=== PATIENT | male | born 1950 | race Caucasian/White ===

== ENCOUNTER → 2017-08-01 | Outpatient (CLI) | payer OTHER, BC ==
[~2017-08-01] VITALS: Ht 175.3 cm; Wt 95.3 kg
[~2017-08-01] MED LIST: DILANTIN100 MG PO; NABUMETONE 750750 M1 PO
--- NOTE | ~2017-08-01 | HPC ---
[facility] [address] [place] [address] PAIN MANAGEMENT CONSULTATION Name: MICHAEL TRAMMELL Room #: REG VIOLA Mitchell#: [id number] Admission: 08/01/17 Attend Phys: Raphael Merchant DO Discharge: Date of : 51 Report #: [id number] THIS REPORT FOR: //name// CC: José Merchant The patient is a 67-year-old gentleman seen in consultation at the request of Dr. Vu for assistance with management of pain, right neck, posterior occiput and shoulder. The patient suffered a traumatic brain injury, fell backward striking his head, posterior occiput, but developing a front intracranial bleed, treated in June 2016. This resolved and in October 2016, started to develop some pain in the right side of his neck. Pain has been persistent for the past 7-8 months. He had cervical epidural injection at C7-T1 for the headache and pain syndrome with no efficacy. Has ongoing physical therapy. Muscle relaxant (tizanidine?) with some efficacy. Deep massage, chiropractic manipulation and p.r.n. nonsteroidal anti-inflammatory medications have all afforded some efficacy, but nothing long-term. He describes continuous sharp stabbing pain, right side of his neck, rates it 8-10 on a VAS, exacerbated with cervical rotation and side bending. Again, pain is primarily in the right neck, posterior occiput and somewhat over the right shoulder. Denies any specific radicular symptoms down to the arm or hand. No myelopathic symptoms are noted. Notes he does have occasional headaches, again subsequent to the TBI, they have been a little more intense in the frontal area, but unrelated to this right posterior occipital, neck and shoulder pain. REVIEW OF SYSTEMS: Complete review of systems attached to chart and gone over with the patient. He is , seen in the company of who is supportive. Does not smoke or drink alcohol to excess. History of seizure disorder, well treated with Dilantin 100 mg at bedtime, states his last seizure was in 1988. He reports really no other medical issues other than the aforementioned traumatic brain injury and intracranial bleed (sub/epidural hematoma? ). The patient has had total knee arthroplasty in 2016, right rotator cuff repairs in 2002 and again in 2013, left rotator cuff repair in 2004. 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 Pain impact score is 26/70. PHYSICAL EXAMINATION: GENERAL: Reveals a 5 feet 9 inches, 210 pounds gentleman. VITAL SIGNS: Stable as noted on the EMR. NEUROLOGIC: Cranial nerves 2-12 appear grossly intact. HEENT: Pupils equal and reactive to light and accommodation. Extraocular muscles are intact. There is nominal nystagmus with lateral gaze deviation. MUSCULOSKELETAL: Cervical range of motion exhibits pain with extension and a [address] [address] PAIN MANAGEMENT CONSULTATION Name: MICHAEL TRAMMELL Room #: REG [facility] [id number] Admission: 08/01/17 Attend Phys: Raphael Merchant DO Discharge: Date of : 51 Report #: [id number] little bit with side bending on the right side. Very tender over the superior cervical facets. Upper extremity strength is symmetric at 4-5 to all muscle groups tested. Hand grasp is symmetric. Tinel's is negative. Deep reflexes are preserved. HEART: Regular and rhythmical with a subtle grade 1-2/6 systolic ejection murmur. LUNGS: Clear to auscultation. ABDOMEN: Benign. EXTREMITIES: Lower extremity strength is preserved. Gait is tandem. DIAGNOSTIC STUDIES: Reviewed including an MRI of the cervical spine from 06/03/2017. While it does note right greater than left facet degenerative changes at C6-C7 and C7-T1 with right-sided HNP. There are no corresponding chronic cervical radicular symptoms. There are also noted; however, C2-C3, C3-C4, C4-C5 of degenerative changes involving the uncovertebral and facets bilaterally. ASSESSMENT: Symptomatic cervical spondylosis by clinical exam and history, history of traumatic brain injury, longstanding seizure disorder. RECOMMENDATIONS: 1. Discussed with the patient today about therapeutic option. It appears the symptoms are coming primarily from right cervical facet radiated pain. We have elected to proceed with cervical facet joint injection under fluoroscopy in the right C2-C3, C3-C4 and C4-C5. We will use a short course of nabumetone 750 b.i.d. The patient is cautioned against using any other [id number] anti-inflammatories. 2. Follow up in 3 weeks for reevaluation. If he gets short-term relief, we will consider medial branch dorsal rami diagnostic block and RFL of same. Thank you for allowing me to participate in the patient's care. I will keep you abreast of his progress. PROCEDURE: Right cervical facet joint injections x 3 under fluoroscopy. Fluoroscopy time was under 20 seconds. PROCEDURE NOTE: After written informed consent was obtained, the patient was taken to fluoroscopy suite, placed in prone position. After sterile prep and drape, skin wheal was raised, 3 skin wheals with Xylocaine were created. The 22-gauge stylet needles were placed to contact the posterior aspect of the right C2-C3, right C3-C4, and right C4-C5 facets in the midpoint of the lateral mass. AP and lateral projections showed good needle placement at the posterior aspect of the joint. Then, 0.5 mL of Omnipaque was injected, which showed no vascular uptake and good spread of dye into the joint. This was followed with 2.33 mg of Decadron plus 1 mL of 0.5% preservative-free bupivacaine at all 3 sites. All 3 needles removed. The area was cleansed, Band-Aids applied. [facility] [address] [place] [address] PAIN MANAGEMENT CONSULTATION Name: MICHAEL TRAMMELL Room #: REG [facility].#: [id number] Admission: 08/01/17 Attend Phys: Raphael Merchant DO Discharge: Date of : 51 Report #: [id number] patient monitored for an appropriate period of time, discharged in good and stable condition. <ELECTRONICALLY SIGNED> By: Raphael Merchant DO 08/03/17 0811 [id number] [id number] Raphael Merchant DO /nt
[2017-08-01 13:38] VITALS: BP 119/70
== END ==
LOC: PAIN 07:28 → EDBD 07:28 → PAIN 13:09
DX: M47.892 Other spondylosis, cervical region (principal); Z87.820 Personal history of traumatic brain injury; G40.802 Other epilepsy, not intractable, without status epilepticus; E07.89 Other specified disorders of thyroid; I86.8 Varicose veins of other specified sites; G40.89 Other seizures

== ENCOUNTER → 2017-08-22 | Outpatient (CLI) | payer OTHER, BC ==
[~2017-08-22] VITALS: Ht 175.3 cm; Wt 98.0 kg
[~2017-08-22] MED LIST changes: +SYNTHROID50 MCG PO
--- NOTE | ~2017-08-22 | HPC ---
[facility] [place] [address] PAIN MANAGEMENT CONSULTATION Name: MICHAEL TRAMMELL Room #: REG Elliott Mitchell#: [id number] Admission: 08/22/17 Attend Phys: Raphael Merchant DO Discharge: Date of : 51 Report #: [id number] THIS REPORT FOR: //name// CC: José Merchant The patient is a pleasant 67-year-old gentleman, prior seen in the pain clinic on 08/01/2017, diagnosed with symptomatic cervical spondylosis. We progressed with right C2-C3, C3-C4 and C4-C5 facet joint injections under fluoroscopy. The patient returns to pain clinic today noting that this did afford a transient improvement of baseline pain, pain had been an 8/10 on admission and was 2/10 on discharge. This lasted for several hours. Pain recurred. Physical exam still notes pain in the superior aspect of the right neck. Today, we talked about moving forward with medial branch dorsal rami diagnostic block. This affords adequate relief. We will try and seek authorization for RFL, but we may have to repeat the diagnostic block depending on insurance coverage. ASSESSMENT: Symptomatic cervical spondylosis in a gentleman with prior history of traumatic brain injury. PROCEDURE: Cervical medial branch dorsal rami diagnostic block, C2, C3 and C4. DESCRIPTION OF PROCEDURE: After written informed consent was obtained, the patient was taken to the fluoroscopy suite and placed in the prone position. After sterile prep and drape, skin was raised. A 16-gauge spinal needle was placed to contact superior articular process of C3, C4 and C5 adjacent to the C3, C4 and C5 medial branch dorsal rami. AP and lateral projections showed good needle placement. 1 mL of 0.5% preservative-free bupivacaine plus 1.5% preservative-free Xylocaine with 1:200,000 epinephrine was injected at each site. All 3 needles were removed. The area was cleansed. Band-Aids were applied. The patient was monitored for an appropriate period of time and discharged in good and stable condition, noting 50% improvement of baseline pain. Fluoroscopy time was 120 seconds. <ELECTRONICALLY SIGNED> By: Raphael Merchant DO 08/24/17 0752 1551 [id number] Raphael Merchant DO /nt
[2017-08-22 13:04] VITALS: BP 124/74
== END | disposition home or self-care (01) ==
LOC: PAIN 07:32
DX: M47.812 Spondylosis without myelopathy or radiculopathy, cervical region (principal)

== ENCOUNTER → 2017-09-01 | Outpatient (CLI) | payer OTHER, BC ==
[~2017-09-01] VITALS: Ht 172.7 cm; Wt 98.2 kg
--- NOTE | ~2017-09-01 | HPC ---
[facility] [address] [place] [address] PAIN MANAGEMENT CONSULTATION Name: MICHAEL TRAMMELL Room #: [facility] [id number] Admission: 09/01/17 Attend Phys: Raphael Merchant DO Discharge: Date of : 51 Report #: [id number] THIS REPORT FOR: //name// CC: José Merchant The patient is a very pleasant 67-year-old gentleman being treated for symptomatic cervical spondylosis and prior history of traumatic brain injury. Last visit 08/22/2017. We progressed to do a right C2, C3 and C4 medial branch dorsal rami diagnostic block. The patient had excellent short term relief, specifically noting near 100% relief about 4 hours. Pain has recurred on the right side of the neck. He incidentally did note he has a little more left-sided pain when the right side was insensate. PHYSICAL EXAMINATION: Otherwise unchanged. Discussed with the patient and his today. We would like to proceed with repeat right C2, C3, and C4 medial branch dorsal rami diagnostic block (there was an error in the prior dictation, it stated C3, C4, and C5, they are actually C2, C3, and C4). If the diagnostic block today again affords a good transient relief, we will move forward with radiofrequency neurolysis of same. ASSESSMENT: Symptomatic cervical spondylosis. PROCEDURE: Cervical medial branch dorsal rami diagnostic block under fluoroscopy. Fluoroscopy time was under 20 seconds. Right C2, C3, and C4. PROCEDURE NOTE: After written informed consent was obtained, the patient was taken to the fluoroscopy suite and placed in prone position. After sterile prep and drape, skin wheal with Xylocaine was raised x 3. A 22-gauge stylet needle was placed to contact the superior articular process of C2, C3, and C4 adjacent to the C2, C3, and C4 medial branch dorsal rami. AP and lateral projections showed good needle placement. A 1 mL of 50:50 mix of 0.5% preservative-free bupivacaine plus 1.5% preservative-free Xylocaine with 1:200,000 epinephrine was injected at all 3 sites. All 3 needles were then removed. The patient was allowed to ambulate to recovery room, monitored for an appropriate period of time. Discharged in good and stable condition, noting significant improvement of baseline pain, in fact noting pain was 8/10 on admission, was absent on discharge. We will plan on moving forward with medial branch dorsal rami neurolysis at next visit. <ELECTRONICALLY SIGNED> By: Raphael Merchant DO 09/02/17 0949 1505 15 Raphael Merchant DO /nt
[2017-09-01 14:02] VITALS: BP 127/72
== END | disposition home or self-care (01) ==
LOC: PAIN 07:11
DX: M47.812 Spondylosis without myelopathy or radiculopathy, cervical region (principal)

== ENCOUNTER → 2017-10-17 | Outpatient (CLI) | payer OTHER, BC ==
[~2017-10-17] VITALS: Ht 172.7 cm; Wt 98.6 kg
[~2017-10-17] MED LIST changes: +ZANAFLEX4 MG PO
--- NOTE | ~2017-10-17 | HPC ---
[facility] [address] [address] PAIN MANAGEMENT CONSULTATION Name: MICHAEL TRAMMELL [facility] #: [facility] [id number] Admission: 10/17/17 Attend Phys: Raphael Merchant DO Discharge: Date of : 51 Report #: [id number] THIS REPORT FOR: //name// CC: José Merchant HISTORY OF PRESENT ILLNESS: The patient is a very pleasant 67-year-old gentleman with ongoing right neck pain. He had good relief with cervical facet joint injections in the past. RFL unfortunately really afforded nominal relief. Last visit on 09/30/2017, we sought authorization for right C2-C3 and a right C3-C4 cervical facet joint injections to help mitigate cervical mediated pain. MRI from 06/03/2017 does note right greater than left facet degenerative changes in the lumbar spine with fairly classic symptoms of right C2-C3 and C3-C4 cervical facet generated pain. If the patient does not get adequate relief with today's injection, suggest consideration for consultation with Neurosurgery for more definitive intervention (ACDF?). Otherwise, we will have to treat the patient symptomatically with analgesic agents, which he is fairly loathe to use. PHYSICAL EXAMINATION: Shows 67-year-old gentleman, BMI 33.1 kilograms per meter squared. Vital signs stable as noted in the EMR. He uses tizanidine for spasm and nabumetone on a nondaily basis (we had discussed cardiac risk and NSAID agents as a general category at last visit). Rises from the chair using armrest. Gait is tandem. Cervical range of motion is modestly limited, tender over the superior cervical facets in the right. Upper extremity strength is preserved. ASSESSMENT: Symptomatic cervical spondylosis. PROCEDURE: Cervical facet joint injection x 2. DESCRIPTION OF PROCEDURE: After written informed consent was obtained, the patient was taken to fluoroscopy suite and placed in the prone position. After sterile prep and drape, skin was raised. A 23-gauge stylet needle was placed to contact the posterior aspect of the right C2-C3 and a right C3-C4 facet joints in the middle of the lateral mass. AP and lateral projections showed good needle placement at the posterior aspect of the joint; 4 mg of Decadron plus 1 mL of 0.5% preservative-free bupivacaine was injected at each site. Both needles removed. The area was cleansed and Band-Aid was applied. The patient was monitored for an appropriate period of time and discharged in good and stable condition. <ELECTRONICALLY SIGNED> By: Raphael Merchant DO 10/24/17 0759 [id number] 0514 Raphael Merchant DO /nt
[2017-10-17 13:34] VITALS: BP 122/65
== END | disposition home or self-care (01) ==
LOC: PAIN 06:59
DX: M47.812 Spondylosis without myelopathy or radiculopathy, cervical region (principal); Z98.890 Other specified postprocedural states